=== PATIENT | female | born 1970 | race Asian ===

== ENCOUNTER 2018-09-27 17:11 | Emergency (ER) | payer MEDICAID ==
[~2018-09-27] VITALS: Ht 177.8 cm; Wt 56.7 kg
[2018-09-27 17:18] VITALS: BP 160/94
[2018-09-27] MEDS ORDERED: FERROUS SULFAT325 MG ORAL (17:18)
[2018-09-27] MEDS ORDERED: MAGNESIUM27 MG PO (17:18)
[2018-09-27] MEDS ORDERED: FOLIC ACID0.4 MG ORAL (17:18)
[2018-09-27] MEDS ORDERED: POTASSIUM CHLOR8 ME2 PO (17:18)
[2018-09-27] MEDS ORDERED: VITAMIN B-1100 MG ORAL (17:18)
--- NOTE | 2018-09-27 17:19 | NUR ---
ED Nurse Note: roberto ra 29 from home c/o cp sob resolved upon arrival to ED. Pt given ASA [employer]. BS per ems 102. Pt A&Ox4
[2018-09-27] MEDS ORDERED: Aspirin Baby 81mg ORAL ONE (17:30)
[2018-09-27 18:07] LABS: BASOPHILS % (AUTO) 1.6 % (0.0-2.0); EOSINOPHILS % (AUTO) 0.6 % (0.0-3.0); HEMATOCRIT 37.3 % (37.0-47.0); HEMOGLOBIN 13.2 G/DL (12.0-16.0); LYMPHOCYTES % (AUTO) 23.7 % (20.0-45.0); MEAN CORPUSCULAR VOLUME 90 FL (80-99); MONOCYTES % (AUTO) 10.5 % (1.0-10.0); NEUTROPHILS % (AUTO) 63.6 % (45.0-75.0); PLATELET COUNT 286 K/UL (150-450); RED BLOOD COUNT 4.14 M/UL (4.20-5.40); RED CELL DISTRIBUTION WIDTH 10.6 % (11.6-14.8); WHITE BLOOD COUNT 5.1 K/UL (4.8-10.8)
--- NOTE | 2018-09-27 18:11 | NUR ---
ED Nurse Note: blood sent to lab urine pending. will monitor.
[2018-09-27 18:20] LABS: ANION GAP 11 mmol/L (5-15); BLOOD UREA NITROGEN 7 mg/dL (7-18); CALCIUM 8.8 MG/DL (8.5-10.1); CARBON DIOXIDE 24 MMOL/L (21-32); CHLORIDE 104 MMOL/L (98-107); CREATININE 0.6 MG/DL (0.55-1.30); POTASSIUM 3.4 MMOL/L (3.5-5.1); SODIUM 139 MMOL/L (136-145)
[2018-09-27 18:34] LABS: ALANINE AMINOTRANSFERASE 19 U/L (12-78); ALBUMIN/GLOBULIN RATIO 1.3 (1.0-2.7); ALKALINE PHOSPHATASE 50 U/L (46-116); ASPARTATE AMINO TRANSFERASE 15 U/L (15-37); BILIRUBIN,TOTAL 0.6 MG/DL (0.2-1.0); CKMB < 0.5 NG/ML (0.0-3.6); CREATINE KINASE 34 U/L (26-308)
--- NOTE | 2018-09-27 19:07 | NUR ---
ED Nurse Note: pt provided with sandwich and juice ol'd by anjali . Urine sent to lab
[2018-09-27 19:09] VITALS: BP 117/72
[2018-09-27 19:09] LABS: APPEARANCE,URINE CLEAR; BILIRUBIN, URINE NEGATIVE (NEGATIVE); COLOR,URINE PALE YELLOW; GLUCOSE, URINE (UA) NEGATIVE (NEGATIVE); KETONES,URINE NEGATIVE (NEGATIVE); LEUKOCYTE ESTERASE ,URINE 1+ (NEGATIVE); NITRITE,URINE NEGATIVE (NEGATIVE); PH,URINE 8 (4.5-8.0); PROTEIN,URINE NEGATIVE (NEGATIVE); UROBILINOGEN,URINE NORMAL MG/DL (0.0-1.0)
--- NOTE | 2018-09-27 19:16 | NUR ---
ED Nurse Note: Patient is resting in supine position due to back pain. Patient is unwilling to raise head of bed. Patiet has no complaints at this time. vital signs are stable.
--- NOTE | 2018-09-27 19:21 | NUR ---
HAND-OFF: Report given to Tonie PIERCE.
--- NOTE | 2018-09-27 20:12 | Emergency Room Report ---
History of Present Illness General Chief Complaint: Chest Pain Source: Patient, EMS Present Illness HPI This patient states that for the past few weeks she is been getting left sided rib cage pain. She states sometimes it will be sternal pain. She states that the pain typically occurs twice a week. She denies shortness of breath. She denies nausea or vomiting. She denies recent illness. She denies cough or congestion. Denies fever chills. She denies abdominal pain. She has no other complaints. Allergies: Coded Allergies: TETRACYCLINE (Verified Allergy, Unknown, 09/27/18) Patient History Past Medical History: none, other - Chronic fatigue syndrome, anemia, insomnia Social History: Denies: smoking, alcohol use, drug use Reviewed Nursing Documentation: PMH: Agreed; PSxH: Agreed Nursing Documentation-PMH Past Medical History: No History, Except For Review of Systems All Other Systems: negative except mentioned in HPI Physical Exam Vital Signs Date Time Temp Pulse Resp B/P (MAP) Pulse Ox O2 Delivery O2 Flow Rate FiO2 09/27/18 17:05 98.8 86 16 160/94 (116) 99 Room Air Sp02 EP Interpretation: reviewed, normal General Appearance: no apparent distress, alert, GCS 15, non-toxic Head: normocephalic, atraumatic Eyes: bilateral eye normal inspection, bilateral eye PERRL ENT: hearing grossly normal, normal pharynx, no angioedema, normal voice Neck: full range of motion, supple/symm/no masses Respiratory: chest non-tender, lungs clear, normal breath sounds, no respiratory distress, no retraction, no accessory muscle use, speaking full sentences Cardiovascular #1: regular rate, rhythm, no edema Gastrointestinal: normal bowel sounds, non tender, soft, non-distended, no guarding, no rebound Rectal: deferred Musculoskeletal: back normal, gait/station normal, normal range of motion, non- tender Neurologic: alert, oriented x3, responsive, motor strength/tone normal, sensory intact, speech normal Psychiatric: judgement/insight normal, memory normal, mood/affect normal, no suicidal/homicidal ideation Skin: normal color, no rash, warm/dry, well hydrated Medical Decision Making Diagnostic Impression: Primary Impression: Chest pain ER Course The patient overall is moderate risk chest pain. I considered PE, PTX, aortic dissection, pneumonia which is unlikely given hx, CXR. Low risk PERC and Wells. Negative work-up to include Cardiac enzymes, CXR. However, the patient' s EKG was abnormal. The patient has Q waves in leads V1, V2, lead I and aVL. This indicates the possibility of previous infarcts. Patient body habitus is also consistent with a possible collagen disorder such as Marfan's syndrome. Given the stuttering symptoms and the findings on EKG, I felt that this patient should be admitted for a more thorough cardiac work-up. She is admitted to telemetry. The patient is transferred to another hospital at the request of the insurance company. The patient is stable for transfer. Laboratory Tests Test 09/27/18 17:40 09/27/18 18:45 White Blood Count 5.1 K/UL (4.8-10.8) Red Blood Count 4.14 M/UL (4.20-5.40) L Hemoglobin 13.2 G/DL (12.0-16.0) Hematocrit 37.3 % (37.0-47.0) Mean Corpuscular Volume 90 FL (80-99) Mean Corpuscular Hemoglobin 31.9 PG (27.0-31.0) H Mean Corpuscular Hemoglobin Concent 35.4 G/DL (32.0-36.0) Red Cell Distribution Width 10.6 % (11.6-14.8) L Platelet Count 286 K/UL (150-450) Mean Platelet Volume 6.8 FL (6.5-10.1) Neutrophils (%) (Auto) 63.6 % (45.0-75.0) Lymphocytes (%) (Auto) 23.7 % (20.0-45.0) Monocytes (%) (Auto) 10.5 % (1.0-10.0) H Eosinophils (%) (Auto) 0.6 % (0.0-3.0) Basophils (%) (Auto) 1.6 % (0.0-2.0) Sodium Level 139 MMOL/L (136-145) Potassium Level 3.4 MMOL/L (3.5-5.1) L Chloride Level 104 MMOL/L (98-107) Carbon Dioxide Level 24 MMOL/L (21-32) Anion Gap 11 mmol/L (5-15) Blood Urea Nitrogen 7 mg/dL (7-18) Creatinine 0.6 MG/DL (0.55-1.30) Estimate Glomerular Filtration Rate > 60 mL/min (>60) Glucose Level 116 MG/DL (74-106) H Calcium Level 8.8 MG/DL (8.5-10.1) Total Bilirubin 0.6 MG/DL (0.2-1.0) Aspartate Amino Transferase (AST) 15 U/L (15-37) Alanine Aminotransferase (ALT) 19 U/L (12-78) Alkaline Phosphatase 50 U/L (46-116) Total Creatine Kinase 34 U/L (26-308) Creatine Kinase MB < 0.5 NG/ML (0.0-3.6) Creatine Kinase MB Relative Index 1.4 Troponin I 0.000 ng/mL (0.000-0.056) Total Protein 7.2 G/DL (6.4-8.2) Albumin 4.0 G/DL (3.4-5.0) Globulin 3.2 g/dL Albumin/Globulin Ratio 1.3 (1.0-2.7) Urine Color Pale yellow Urine Appearance Clear Urine pH 8 (4.5-8.0) Urine Specific [place] 1.010 (1.005-1.035) Urine Protein Negative (NEGATIVE) Urine Glucose (UA) Negative (NEGATIVE) Urine Ketones Negative (NEGATIVE) Urine Blood Negative (NEGATIVE) Urine Nitrite Negative (NEGATIVE) Urine Bilirubin Negative (NEGATIVE) Urine Urobilinogen Normal MG/DL (0.0-1.0) Urine Leukocyte Esterase 1+ (NEGATIVE) H Urine RBC 0 /HPF (0 - 2) Urine WBC 5-10 /HPF (0 - 2) H Urine Squamous Epithelial Cells Many /LPF (NONE/OCC) H Urine Bacteria Occasional /HPF (NONE) Urine Opiates Screen Negative (NEGATIVE) Urine Barbiturates Screen Negative (NEGATIVE) Phencyclidine (PCP) Screen Negative (NEGATIVE) Urine Amphetamines Screen Negative (NEGATIVE) Urine Benzodiazepines Screen Negative (NEGATIVE) Urine Cocaine Screen Negative (NEGATIVE) Urine Marijuana (THC) Screen Negative (NEGATIVE) EKG Diagnostic Results Rate: normal Rhythm: NSR ST Segments: no acute changes Other Impression Qwaves in leads V1, V2, I, aVL Rhythm Strip Diag. Results EP Interpretation: yes Rate: 70's Rhythm: NSR, no PVC's, no ectopy Chest X-Ray Diagnostic Results Chest X-Ray Diagnostic Results : Chest X-Ray Ordered: Yes # of Views/Limited/Complete: 1 View Indication: Chest Pain EP Interpretation: Yes Interpretation: no consolidation, no effusion, no pneumothorax, no acute cardiopulmonary disease Impression: No acute disease Electronically Signed by: Elza Kebede DO Last Vital Signs Date Time Temp Pulse Resp B/P (MAP) Pulse Ox O2 Delivery O2 Flow Rate FiO2 09/27/18 19:09 73 11 117/72 100 Room Air 09/27/18 17:18 98.8 Disposition: XFER SHT-TRM HOSP Condition: Stable Referrals: NON PHYSICIAN (PCP) Elza Kebede DO Sep 27, 2018 20:12
--- NOTE | 2018-09-27 20:30 | NUR ---
ED Nurse Note: Patient is resting comfortably, patient request another blanket. Patient provided with a warm blanket.
--- NOTE | 2018-09-27 21:40 | NUR ---
ED Nurse Note: Patient has complaints of intermittent chest pain 4/10 on pain scale. will continue to monitor.
--- NOTE | 2018-09-27 22:05 | NUR ---
ED Nurse Note: Patient states pain level of 0/10 at this time.
[2018-09-27 22:10] VITALS: BP 120/75
--- NOTE | 2018-09-27 23:21 | NUR ---
ED Nurse Note: Patietn is relaxing with no complaints. Patient is on tablet.
[2018-09-27 23:22] VITALS: BP 120/77
--- NOTE | 2018-09-28 01:07 | NUR ---
ED Nurse Note: Report called into Christine PIERCE at [facility]. Patient is awake, alert and oriented x4, ambulatory with steady gait. Report also given to [facility] prior to departure with patient for transport.
[2018-09-28 01:10] VITALS: BP 120/77
--- NOTE | 2018-09-28 01:11 | NUR ---
ED Nurse Note: Patient inerjected during report that she does not have hypertension.
--- NOTE | 2018-09-28 08:39 | Diagnostic Imaging Report ---
Indication: Chest pain Technique: One view of the chest Comparison: none Findings: Lungs and pleural spaces are clear. Heart size is normal Impression: No acute process
--- NOTE | 2018-09-30 19:14 | Cardiology Report ---
APPROVED REPORT EKG Measurement Heart [id number] ME [id number] [id number] Normal sinus rhythm Septal infarct, age undetermined Lateral infarct, age undetermined Abnormal ECG
== END 2018-09-28 01:12 | disposition short-term general hospital (02) ==
LOC: EDBD 17:11 → EMR 17:30
DX: R07.9 Chest pain, unspecified (principal); Z88.1 Allergy status to other antibiotic agents
CPT/HCPCS: 36415; 71045; 80053; 80307; 81003; 82550; 82553; 84484; 85025; 93005; 99283

== ENCOUNTER 2019-10-15 07:58 | Emergency (ER) | payer MEDICAID ==
[~2019-10-15] VITALS: Ht 177.8 cm; Wt 63.5 kg
--- NOTE | 2019-10-15 07:54 | NUR ---
ED Nurse Note: verbal order received from ERMd to change new gifford cath.
[2019-10-15 07:58] VITALS: BP 130/80
[~2019-10-15 07:58] MED LIST: FERROUS SULFAT325 MG ORAL; FOLIC ACID0.4 MG ORAL; MAGNESIUM27 MG PO; POTASSIUM CHLOR8 ME2 PO; VITAMIN B-1100 MG ORAL
--- NOTE | 2019-10-15 07:58 | NUR ---
ED Nurse Note: PT brought in by ambulance from home for bladder/ lower abd pain since this AM. pt has a gifford cath in place. per pt she has a gifford cath due to hx of uterine fibroid since june 2019. PT is screaming in pain requesting to take out the gifford catheter.
--- NOTE | 2019-10-15 07:59 | NUR ---
ED Nurse Note: after gifford cath taken out, pt was agble to void 450ml urine her self. ERMD made aware.
--- NOTE | 2019-10-15 07:59 | Emergency Room Report ---
History of Present Illness General Source: Patient (Johnathan Bhagat MD) Present Illness HPI Patient is a 49-year-old [place] female brought in by EMS after increased abdominal pain. Onset of symptoms this morning. Patient states that she has some prior history of abdominal pain to the left lower abdomen. Had previous history of fibroids. Previously been anemic but had been told that she no longer needed to take iron as her blood counts have improved. Had Brown catheter placed in for urinary retention. Thinks that she may have chronic fatigue syndrome. She states she is been having increased difficulty with ambulation for several weeks. She states is mostly in the bed. Patient had decreased urine output from her indwelling catheter. She had previous history of urinary retention. Patient requesting catheter removal. (Johnathan Bhagat MD) Allergies: Coded Allergies: AMOXICILLIN (Unverified Allergy, Unknown, 10/15/19) LATEX (Unverified Allergy, Unknown, 10/15/19) TETRACYCLINE (Verified Allergy, Unknown, 09/27/18) Patient History Past Medical History: see triage record Reviewed Nursing Documentation: PMH: Agreed; PSxH: Agreed (Johnathan Bhagat MD) Review of Systems Constitutional: Reports: weakness Gastrointestinal: Reports: abdominal pain Genitourinary: Reports: hematuria Musculoskeletal: Reports: back pain Skin: Reports: no symptoms Psychiatric: Reports: anxiety Neurological: Reports: tremors Endocrine: Reports: no symptoms Hematologic/Lymphatic: Reports: anemia All Other Systems: negative except mentioned in HPI (Johnathan Bhagat MD) Physical Exam Sp02 EP Interpretation: reviewed, normal General Appearance: normal inspection, no apparent distress, alert, moderate distress Head: atraumatic ENT: normal ENT inspection, hearing grossly normal, normal voice Neck: normal inspection, full range of motion, supple, no bony tend Respiratory: normal inspection, lungs clear, normal breath sounds, no respiratory distress, no retraction, no wheezing Cardiovascular #1: regular rate, rhythm, no edema Gastrointestinal: non tender, soft, no guarding, no hernia, tenderness - Suprapubic Genitourinary: no CVA tenderness Musculoskeletal: normal inspection, back normal, normal range of motion Neurologic: alert, motor strength/tone normal, manager financial services III-XII nml as tested, responsive, speech normal, normal inspection Psychiatric: normal inspection, judgement/insight normal, mood/affect normal (Johnathan Bhagat MD) Medical Decision Making Diagnostic Impression: Primary Impression: Uterine mass Additional Impression: Urinary tract infection ER Course Patient presented for suprapubic abdominal pain. Differential diagnosis include was not limited to Brown catheter obstruction, urinary tract infection, pelvic mass among others. Patient's catheter did not appear to have any evidence of urine output. Catheter was removed and patient was able to void. Post void bladder scan was ordered.Urinalysis did show some evidence of urinary infection. Pelvic ultrasound showed what appears to be a fibroid uterus however there is some concern for this being suspicious for endometrial cancer. Patient was given copy of reports and advised to follow-up with her EQUIPMENT TECH. Patient was advised of ultrasound findings and advised that she should see her EQUIPMENT TECH for possible endometrial biopsy. Patient was advised that she would be contacted if culture results showed resistant organism that she has been on antibiotics several times in the past. Labs Test 10/15/19 08:07 10/15/19 08:28 Urine Color Pale yellow Urine Appearance Slightly cloudy Urine pH 6 (4.5-8.0) Urine Specific [place] 1.015 (1.005-1.035) Urine Protein 1+ (NEGATIVE) Urine Glucose (UA) Negative (NEGATIVE) Urine Ketones Negative (NEGATIVE) Urine Blood 3+ (NEGATIVE) Urine Nitrite Positive (NEGATIVE) Urine Bilirubin Negative (NEGATIVE) Urine Urobilinogen Normal MG/DL (0.0-1.0) Urine Leukocyte Esterase 3+ (NEGATIVE) Urine RBC 5-10 /HPF (0 - 2) Urine WBC 20-30 /HPF (0 - 2) Urine Squamous Epithelial Cells Few /LPF (NONE/OCC) Urine Bacteria Moderate /HPF (NONE) Urine HCG, Qualitative Negative (NEGATIVE) White Blood Count 12.3 K/UL (4.8-10.8) Red Blood Count 4.48 M/UL (4.20-5.40) Hemoglobin 14.4 G/DL (12.0-16.0) Hematocrit 42.9 % (37.0-47.0) Mean Corpuscular Volume 96 FL (80-99) Mean Corpuscular Hemoglobin 32.1 PG (27.0-31.0) Mean Corpuscular Hemoglobin Concent 33.5 G/DL (32.0-36.0) Red Cell Distribution Width 10.9 % (11.6-14.8) Platelet Count 294 K/UL (150-450) Mean Platelet Volume 8.4 FL (6.5-10.1) Neutrophils (%) (Auto) % (45.0-75.0) Lymphocytes (%) (Auto) % (20.0-45.0) Monocytes (%) (Auto) % (1.0-10.0) Eosinophils (%) (Auto) % (0.0-3.0) Basophils (%) (Auto) % (0.0-2.0) Differential Total Cells Counted 100 Neutrophils % (Manual) 88 % (45-75) Lymphocytes % (Manual) 5 % (20-45) Monocytes % (Manual) 6 % (1-10) Eosinophils % (Manual) 1 % (0-3) Basophils % (Manual) 0 % (0-2) Band Neutrophils 0 % (0-8) Platelet Estimate Adequate Platelet Morphology Normal Red Blood Cell Morphology Normal Prothrombin Time 11.4 SEC (9.30-11.50) Prothromb Time International Ratio 1.0 (0.9-1.1) Activated Partial Thromboplast Time 29 SEC (23-33) Sodium Level 138 MMOL/L (136-145) Potassium Level 4.2 MMOL/L (3.5-5.1) Chloride Level 102 MMOL/L (98-107) Carbon Dioxide Level 23 MMOL/L (21-32) Anion Gap 13 mmol/L (5-15) Blood Urea Nitrogen 10 mg/dL (7-18) Creatinine 0.7 MG/DL (0.55-1.30) Estimat Glomerular Filtration Rate > 60 mL/min (>60) Glucose Level 114 MG/DL (74-106) Calcium Level 8.7 MG/DL (8.5-10.1) Total Bilirubin 0.2 MG/DL (0.2-1.0) Aspartate Amino Transf (AST/SGOT) 20 U/L (15-37) Alanine Aminotransferase (ALT/SGPT) 23 U/L (12-78) Alkaline Phosphatase 54 U/L (46-116) Troponin I 0.000 ng/mL (0.000-0.056) C-Reactive Protein, Quantitative < 0.4 mg/dL (0.00-0.90) Total Protein 6.8 G/DL (6.4-8.2) Albumin 3.8 G/DL (3.4-5.0) Globulin 3.0 g/dL Albumin/Globulin Ratio 1.3 (1.0-2.7) Lipase 132 U/L (73-393) Thyroid Stimulating Hormone (TSH) 1.135 uiU/mL (0.358-3.740) (Johnathan Bhagat MD) ER Course October 17 2 AM culture results returned with Morganella morganii species resistant to Macrobid. Patient will need to be contacted to switch antibiotics. (Jack Clark MD) Status: improved (Johnathan Bhagat MD) Disposition: HOME, SELF-CARE Condition: Stable Scripts Trimethoprim/Sulfamethoxazole 160/800* (BACTRIM DS TABLET*) 1 Each Tablet 1 TAB ORAL Q12H, #14 TAB 0 Refills Prov: Johnathan Bhagat MD 10/18/19 Nitrofurantoin Monohyd/M-Cryst* (MACROBID 100 MG*) 100 Mg Capsule 100 MG ORAL EVERY 12 HOURS, #20 CAP Prov: Johnathan Bhagat MD 10/15/19 Johnathan Bhagat MD Oct 15, 2019 07:59 Jack Clark MD Oct 18, 2019 02:24
--- NOTE | 2019-10-15 08:09 | NUR ---
ED Nurse Note: PT noted 450ml urine output via bedpan. pt verbalizes relief from pain. urine sample collected and sent to lab. 275ml redisual urine noted in bladder via bldder scan. PT refuse to have IV access at this time. EDU made aware.
--- NOTE | 2019-10-15 08:29 | NUR ---
ED Nurse Note: PT after speaking to ERMD, agreed to have blood draw but still refuses IV access at this time. Blood sample collected and sent to lab.
[2019-10-15 08:30] LABS: BILIRUBIN, URINE NEGATIVE (NEGATIVE); COLOR,URINE PALE YELLOW; GLUCOSE, URINE (UA) NEGATIVE (NEGATIVE); KETONES,URINE NEGATIVE (NEGATIVE); LEUKOCYTE ESTERASE ,URINE 3+ (NEGATIVE); NITRITE,URINE POSITIVE (NEGATIVE); PH,URINE 6 (4.5-8.0); PROTEIN,URINE 1+ (NEGATIVE); UROBILINOGEN,URINE NORMAL MG/DL (0.0-1.0)
[2019-10-15 08:39] LABS: APPEARANCE,URINE SLIGHTLY CLOUDY
--- NOTE | 2019-10-15 08:43 | NUR ---
ED Nurse Note: ultrasound being performed at bedside.
[2019-10-15 08:48] LABS: HEMATOCRIT 42.9 % (37.0-47.0); HEMOGLOBIN 14.4 G/DL (12.0-16.0); MEAN CORPUSCULAR VOLUME 96 FL (80-99); PLATELET COUNT 294 K/UL (150-450); RED BLOOD COUNT 4.48 M/UL (4.20-5.40); RED CELL DISTRIBUTION WIDTH 10.9 % (11.6-14.8); WHITE BLOOD COUNT 12.3 K/UL (4.8-10.8)
[2019-10-15] MEDS ORDERED: Morphine Sulfate 4mg/ml Inj (IV USE ONLY) IVP ONE (09:15)
[2019-10-15] MEDS ORDERED: Metoclopramide 10mg/2ml Inj IVP ONE (09:15)
[2019-10-15 09:16] LABS: ALBUMIN 3.8 G/DL (3.4-5.0); ALBUMIN/GLOBULIN RATIO 1.3 (1.0-2.7); ALKALINE PHOSPHATASE 54 U/L (46-116); ANION GAP 13 mmol/L (5-15); ASPARTATE AMINO TRANSFERASE 20 U/L (15-37); BILIRUBIN,TOTAL 0.2 MG/DL (0.2-1.0); CARBON DIOXIDE 23 MMOL/L (21-32); CHLORIDE 102 MMOL/L (98-107); POTASSIUM 4.2 MMOL/L (3.5-5.1); SODIUM 138 MMOL/L (136-145)
[2019-10-15 09:27] LABS: ALANINE AMINOTRANSFERASE 23 U/L (12-78); BLOOD UREA NITROGEN 10 mg/dL (7-18); CALCIUM 8.7 MG/DL (8.5-10.1); CREATININE 0.7 MG/DL (0.55-1.30)
--- NOTE | 2019-10-15 09:34 | NUR ---
ED Nurse Note: ERMD at bedside discussing lab results and answering pt questions.
[2019-10-15] MEDS ORDERED: NITROFURANTOIN100 M2 ORAL (09:43)
[2019-10-15 10:21] VITALS: BP 122/74
--- NOTE | 2019-10-15 10:21 | NUR ---
ER DISCHARGE NOTE: Patient is cleared to be discharged per ERMD, pt is aox4, on room air, with stable vital signs. pt was given dc and prescription instructions, pt was able to verbalize understanding, pt id band and iv site removed without complications. pt is able to ambulate with steady gait. pt took all belongings.
--- NOTE | 2019-10-15 11:32 | Diagnostic Imaging Report ---
Indication: Pelvic pain. Negative test. Irregular menses Technique: Transabdominal images only of the pelvis. Transvaginal images not performed, per patient request. Doppler interrogation of the bilateral ovaries Comparison: none Findings: Uterus measures 14.6 cm length by 11.1 cm AP. Centrally within the uterus, there is a heterogeneous overall slightly hypoechoic mass which measures 9 x 8 cm. This is hypervascular. The endometrium could not be demonstrated there is a small cervical nabothian cyst right ovary measures 3.2 cm length. The left ovary measures 3.6 cm length. Both ovaries demonstrate normal flow on Doppler. Small amount of free fluid is seen in the pelvic cul-de-sac. Impression: Limited exam, due to lack of endovaginal images 9.8 cm diameter hypervascular central uterine mass. Most likely a fibroid, given reported clinical history of such. However, given lack of visualization of the endometrium and central location of the lesion, the possibility of endometrial neoplasm should also be considered. Consider further evaluation with contrast MRI if this has not been worked up previously. Normal ovaries Findings discussed by phone with Dr. Bhagat in the emergency room at the time of interpretation
[2019-10-18] MEDS ORDERED: BACTRIM DS TAB1 EAC1 ORAL (08:11)
== END 2019-10-15 10:25 | disposition home or self-care (01) ==
LOC: EDBD 07:58 → EMR 08:23
DX: D25.9 Leiomyoma of uterus, unspecified (principal); N39.0 Urinary tract infection, site not specified; M54.9 Dorsalgia, unspecified; D64.9 Anemia, unspecified; R10.2 Pelvic and perineal pain; N88.8 Other specified noninflammatory disorders of cervix uteri; Z88.0 Allergy status to penicillin; Z91.040 Latex allergy status; Z88.8 Allergy status to other drugs, medicaments and biological substances
CPT/HCPCS: 36415; 76856; 80053; 81003; 81025; 83690; 84443; 84484; 85007; 85025; 85610; 85730; 86140; 87086; 87181; Z7502; 99284